=== PATIENT | male | born 1965 | race Caucasian/White ===

== ENCOUNTER 2017-05-31 10:02 | Emergency (ER) | payer BC ==
[~2017-05-31] VITALS: Ht 182.9 cm; Wt 92.7 kg
[2017-05-31 10:03] VITALS: Ht 182.9 cm; Wt 92.7 kg
[2017-05-31] MEDS ORDERED: SODIUM CHLORIDE 0.9% 1000ML 1,000 ML IV STA (10:21)
[2017-05-31] MEDS ORDERED: ACETAMINOPHEN 325 MG TAB PO STA (10:21)
[2017-05-31] MEDS ORDERED: IBUPROFEN 600 MG TAB PO STA (10:21)
--- NOTE | 2017-05-31 10:56 | DIAGNOSTIC IMAGING REPORT ---
CHEST ONE VIEW PORTABLE HISTORY: Sepsis COMPARISON: None. FINDINGS: The lungs are clear. Cardiac silhouette is normal in size. No pleural effusions. No pneumothorax. IMPRESSION: No acute process. Electronically signed by: Marcio Bender M.D. 05/31/2017 10:55 AM Dictated Date/Time: 05/31/2017 10:54 AM
[2017-05-31 11:29] LABS: INR 1.1 (0.9-1.1); PARTIAL THROMBOPLASTIN RATIO 1.1; PROTHROMBIN TIME (PATIENT) 11.6 SECONDS (9.0-12.0)
[2017-05-31 11:30] LABS: BUN/CREATININE RATIO 13.3 (10-20); CALCIUM 9.1 mg/dl (8.5-10.1); CREATININE 1.2 mg/dl (0.60-1.40); POTASSIUM 3.9 mmol/L (3.5-5.1)
[2017-05-31 11:33] LABS: ALB/GLOB RATIO 1.1 (0.9-2)
[2017-05-31 11:35] LABS: BASO % 0.2 %; BASO ABS # 0.01 K/uL (0-0.2); COMPLETE YES; HEMATOCRIT 45.3 % (42-52); IG% 0.2 %; LYMPH % 4.4 %; LYMPH ABS # 0.26 K/uL (1.2-3.4); MEAN CELL VOLUME 88.3 fL (80-100); MEAN CORPUSCULAR HEMOGLOBIN 31.8 pg (25-34); MEAN PLATELET VOLUME 10.1 fL (7.4-10.4); MONO % 7.4 %; NEUT % 87.8 %; PLATELET COUNT 142 K/uL (130-400); RED BLOOD COUNT 5.13 M/uL (4.7-6.1); WHITE BLOOD COUNT 5.95 K/uL (4.8-10.8)
[2017-05-31 12:13] LABS: LYME DISEASE AB IGG NEG (NEG); LYME DISEASE AB IGM NEG (NEG)
[2017-05-31 13:30] LABS: URINE APPEARANCE CLEAR (CLEAR); URINE COLOR DK YELLOW; URINE NITRITE NEG (NEG); URINE PH 5.5 (4.5-7.5); URINE SPECIFIC GRAVITY 1.027 (1.000-1.030); UROBILINOGEN POS (NEG); ZZUR CULT IF INDIC CLEAN CATCH NO
[2017-05-31 13:34] LABS: MANUAL MICROSCOPIC REQUIRED? NO; REVIEW REQ? NO; URINE BILIRUBIN NEG (NEG)
[2017-05-31] MEDS ORDERED: DOXYCYCLINE HYCLATE 100 MG CAP PO ONE (13:45)
[2017-05-31] MEDS ORDERED: DOXY100C2 PO (13:46)
[2017-05-31 14:08] VITALS: BP 135/82; PULSE 85; TEMP 36.8; O2SAT 96
--- NOTE | 2017-05-31 16:34 | EMERGENCY ROOM VISIT NOTE ---
History Report prepared by Reese: Mady Jeong Under the Supervision of: Dr. Hernan Maldonado M.D. First contact with patient: 10:10 Chief Complaint: ILLNESS Stated Complaint: ILLNESS History of Present Illness The patient is a 51 year old male who presents to the Emergency Room with complaints of an illness beginning 2 days ago. The patient reports that he has had nausea, chills, fevers, vomiting, and coughing when he vomits. He states that about twice a day he shakes uncontrollably for a half hour. He states that he also sweats profusely for 1-2 hours per day, twice a day. The patient also complains of a headache in the front of his head. He denies neck stiffness, a sore throat, abdominal pain, chest pain, shortness of breath, diarrhea, and urinary symptoms. The patient states that he had poison ranulfo on his feet and legs 6 days ago. He also reports that he had a tick bite 2 months ago, but did not have a rash with the bite. He reports that he has no other pertinent medical problems. The patient states that he did not take Tylenol or Motrin today for his symptoms. Source of History: patient Onset: 2 days ago Position: other (global) Quality: other (illness) Associated Symptoms: + fevers, + chills, + headache (front of his head ), + diaphoresis (1-2 hours per day, twice a day ), + cough (when he vomits ), + nausea, + vomiting, No sorethroat, No neck pain, No chest pain, No SOB, No abdominal pain, No diarrhea, No urinary symptoms Review of Systems See HPI for pertinent positives & negatives. A total of 10 systems reviewed and were otherwise negative. Past Medical & Surgical Medical Problems: (1) Tick bite Family History No pertinent family history stated. Social History Smoking Status: Never Smoker Marital Status: Current/Historical Medications Scheduled Doxycycline Hyclate (Vibramycin), 100 MG PO BID Allergies Coded Allergies: No Known Allergies (Unverified , 05/31/17) Physical Exam Vital Signs Date Time Temp Pulse Resp B/P (MAP) Pulse Ox O2 Delivery O2 Flow Rate FiO2 05/31/17 14:08 36.8 85 16 135/82 96 Room Air 05/31/17 12:44 95 16 123/69 05/31/17 11:20 90 16 136/83 05/31/17 10:03 37.9 122 17 140/88 96 Room Air Physical Exam Constitutional: Vital signs reviewed. Eyes: Pupils are equal round reactive to light. Conjunctiva are noninjected. ENT: Pharynx is clear without erythema or exudate. Mucous membranes are moist. Neck supple without meningeal signs. Respiratory: Clear to auscultation bilaterally. Breath sounds are equal bilaterally. Cardiovascular: Regular rate and rhythm. No rubs or gallops. GI: Soft, nondistended and nontender. Bowel sounds are present. Musculoskeletal: No peripheral edema. No lower extremity tenderness. Integumentary: No cyanosis. Appear to be bug bites to his lower legs and feet with some scattered bites to his thighs. No vesicles, petechiae, or purpura. No lesions on the palms or soles. Neurological: The patient is awake and alert. Cranial nerves II-XII are intact. Motor is 5 out of 5 all extremities. Sensation is intact to light touch all extremities. Normal speech. No pronator drift. No limb ataxia. Negative Kernig and Brudzinski's sign. Psychiatric: Normal affect. Medical Decision & Procedures ER Provider Diagnostic Interpretation: X-ray results as stated below per interpretation by me and the radiologist: CHEST ONE VIEW PORTABLE HISTORY: Sepsis COMPARISON: None. FINDINGS: The lungs are clear. Cardiac silhouette is normal in size. No pleural effusions. No pneumothorax. IMPRESSION: No acute process. Electronically signed by: Marcio Bender M.D. 05/31/2017 10:55 AM Dictated Date/Time: 05/31/2017 10:54 AM Laboratory Results 05/31/17 10:50 Red Blood Count 5.13, Mean Corpuscular Volume 88.3, Mean Corpuscular Hemoglobin 31.8, Mean Corpuscular Hemoglobin Concent 36.0, Mean Platelet Volume 10.1, Neutrophils (%) (Auto) 87.8, Lymphocytes (%) (Auto) 4.4, Monocytes (%) (Auto) 7.4, Eosinophils (%) (Auto) 0.0, Basophils (%) (Auto) 0.2, Neutrophils # (Auto) 5.23, Lymphocytes # (Auto) 0.26, Monocytes # (Auto) 0.44, Eosinophils # (Auto) 0.00, Basophils # (Auto) 0.01 05/31/17 10:50 Test 05/31/17 10:50 05/31/17 10:53 05/31/17 11:03 05/31/17 13:10 White Blood Count 5.95 K/uL (4.8-10.8) Red Blood Count 5.13 M/uL (4.7-6.1) Hemoglobin 16.3 g/dL (14.0-18.0) Hematocrit 45.3 % (42-52) Mean Corpuscular Volume 88.3 fL (80-100) Mean Corpuscular Hemoglobin 31.8 pg (25-34) Mean Corpuscular Hemoglobin Concent 36.0 g/dl (32-36) Platelet Count 142 K/uL (130-400) Mean Platelet Volume 10.1 fL (7.4-10.4) Neutrophils (%) (Auto) 87.8 % Lymphocytes (%) (Auto) 4.4 % Monocytes (%) (Auto) 7.4 % Eosinophils (%) (Auto) 0.0 % Basophils (%) (Auto) 0.2 % Neutrophils # (Auto) 5.23 K/uL (1.4-6.5) Lymphocytes # (Auto) 0.26 K/uL (1.2-3.4) Monocytes # (Auto) 0.44 K/uL (0.11-0.59) Eosinophils # (Auto) 0.00 K/uL (0-0.5) Basophils # (Auto) 0.01 K/uL (0-0.2) RDW Standard Deviation 41.1 fL (36.4-46.3) RDW Coefficient of Variation 12.7 % (11.5-14.5) Immature Granulocyte % (Auto) 0.2 % Immature Granulocyte # (Auto) 0.01 K/uL (0.00-0.02) Prothrombin Time 11.6 SECONDS (9.0-12.0) Prothromb Time International Ratio 1.1 (0.9-1.1) Activated Partial Thromboplast Time 27.9 SECONDS (21.0-31.0) Partial Thromboplastin Ratio 1.1 Anion Gap 8.0 mmol/L (3-11) Est Creatinine Clear Calc Drug Dose 78.2 ml/min Estimated GFR () 79.5 Estimated GFR (Non- 68.6 BUN/Creatinine Ratio 13.3 (10-20) Calcium Level 9.1 mg/dl (8.5-10.1) Total Bilirubin 3.2 mg/dl (0.2-1) Aspartate Amino Transf (AST/SGOT) 48 U/L (15-37) Alanine Aminotransferase (ALT/SGPT) 79 U/L (12-78) Alkaline Phosphatase 87 U/L (45-117) Total Protein 7.2 gm/dl (6.4-8.2) Albumin 3.8 gm/dl (3.4-5.0) Globulin 3.4 gm/dl (2.5-4.0) Albumin/Globulin Ratio 1.1 (0.9-2) Lyme Disease IgG Antibody NEG (NEG) Lyme Disease IgM Antibody NEG (NEG) Monoscreen NEG (NEG) Influenza Type A Antigen Neg for Influ A (NEG) Influenza Type B Antigen Neg for Influ B (NEG) Bedside Lactic Acid Venous 1.36 mmol/L (0.90-1.70) Urine Color DK YELLOW Urine Appearance CLEAR (CLEAR) Urine pH 5.5 (4.5-7.5) Urine Specific [place] 1.027 (1.000-1.030) Urine Protein 1+ (NEG) Urine Glucose (UA) NEG (NEG) Urine Ketones 1+ (NEG) Urine Occult Blood NEG (NEG) Urine Nitrite NEG (NEG) Urine Bilirubin NEG (NEG) Urine Urobilinogen POS (NEG) Urine Leukocyte Esterase NEG (NEG) Urine WBC (Auto) 1-5 /hpf (0-5) Urine RBC (Auto) 0-4 /hpf (0-4) Urine Hyaline Casts (Auto) 1-5 /lpf (0-5) Urine Epithelial Cells (Auto) 10-20 /lpf (0-5) Urine Bacteria (Auto) NEG (NEG) Laboratory results as reviewed by me. Medications Administered Medications (Trade) Dose Ordered Sig/Reji Route Start Time Stop Time Status Last Admin Dose Admin Sodium Chloride 1,000 ml @ 999 mls/hr Q1H1M STAT IV 05/31/17 10:21 05/31/17 11:21 DC 05/31/17 11:00 999 MLS/HR Acetaminophen (Tylenol Tab) 650 mg NOW STAT PO 05/31/17 10:21 6/30/17 10:24 DC 05/31/17 11:00 650 MG Ibuprofen (Motrin Tab) 600 mg NOW STAT PO 05/31/17 10:21 05/31/17 10:24 DC 05/31/17 11:01 600 MG Doxycycline Hyclate (Vibramycin Cap) 100 mg ONE ONCE PO 05/31/17 13:45 05/31/17 13:46 DC 05/31/17 14:05 100 MG ED Course 1014: The patient was evaluated in room A4. A complete history and physical exam was performed. 1021: Ordered Ibuprofen 600 mg PO, Tylenol Tab 650 mg PO, Sodium Chloride 1,000 ml @ 999 mls/hr IV. 1141: I discussed test results with the patient. 1230: I talked about test results and he says that he is feeling better and his headache is almost completely resolved. We discussed the possibility of lumbar puncture, but we agreed that it was not indicated currently. The patient will give a urine sample. 1345: Ordered Doxycycline Hyclate 100 mg PO. 1347: The patient agrees to undergo treatment for Lyme Disease given his symptoms and LFT's. He will follow up with a primary doctor next week. Medical Decision This is a 51-year-old male who presents with fever and malaise. Differential diagnosis includes Lyme disease, viral infection, pneumonia, UTI, influenza, meningitis, RMSF. I did perform a limited focused review of portions of the patient's old chart on the electronic medical record. The patient has had no recent pertinent visits to this hospital. Blood Pressure Screening: Patient was found to have an elevated blood pressure and was referred to their primary doctor for recheck and further treatment. Medication Reconciliation: I attest that I have personally reviewed the patient' s current medication list. I did evaluate the patient as noted above. The patient is presenting with fever , chills and malaise. He states he has some elbow pain as well and recently had tick bites. The symptoms seem most consistent with Lyme disease. He does complain of a headache but it is frontal without any neck stiffness or pain. He has no meningeal signs on examination. He does have a rash to his lower extremities which appears to be consistent with bug bites. He initially thought it was poison ranulfo or oak but I do not see any vesicles or a pattern consistent with poison ranulfo. He does not have any lesions on the palms or soles to suggest Blanco spotted fever. IV access was established. I did treat the patient with normal saline IV. He was also given Tylenol and Motrin. I did order and personally review the patient's urinalysis and chest x-ray as described above. I did order and review the patient's blood work as noted in the electronic medical record. His white blood cell count is not elevated. Lyme and Monospot are negative. Rapid flu test is negative. He does have some elevation of his LFTs.I did reassess the patient. I did discuss the test results with him. He states he is feeling better at this time and states that this headache is very mild. Again I explained to him why I did not feel he had meningitis and did not feel he needed a lumbar puncture at this time. He agreed. His symptoms seem most consistent with Lyme disease despite the negative lab tests. We often see false negative Lyme test early in the course of the disease. He has had recent tick bites, he complains of headache, fever and body aches with joint pain. I did recommend we treat him for Lyme. He was given doxycycline here and discharged home with a 21 day course of doxycycline. He was advised to follow closely with a primary care physician next week. He will need his LFTs rechecked. Impression Primary Impression: Acute febrile illness Additional Impressions: Abnormal LFTs Acute headache Scribe Attestation The scribe's documentation has been prepared under my direct and personally reviewed by me in its entirety. I confirm that the note above accurately reflects all work, treatment, procedures, and medical decision making performed by me. Departure Information Dispostion Home / Self-Care Prescriptions Doxycycline Hyclate (VIBRAMYCIN) 100 Mg Cap 100 MG PO BID for 21 Days, #42 CAP Prov: Hernan Maldonado M.D. 05/31/17 Referrals No Doctor, Assigned (PCP) Forms HOME CARE DOCUMENTATION FORM, IMPORTANT VISIT INFORMATION, WORK / SCHOOL INSTRUCTIONS Patient Instructions My [facility] Additional Instructions You have been examined and treated today on an emergency basis only. This is not a substitute for, or an effort to provide, complete comprehensive medical care. It is impossible to recognize and treat all injuries or illnesses in a single emergency department visit. It is therefore important that you follow up closely with a regular physician. Call as soon as possible for an appointment. Have them recheck your liver tests which were elevated today. Return for worsening symptoms or if you develop neck stiffness, rash, vomiting, abdominal pain or any other concerning symptoms. You are being treated empirically for possible Lyme disease despite a negative blood test because of your clinical symptoms. Problem Qualifiers Additional Impressions: Acute headache Headache type: unspecified Intractability: not intractable Qualified Codes : R51 - Headache
== END 2017-05-31 14:22 | disposition home or self-care (01) ==
LOC: C.EDB 10:04 → C.EDA 14:22
DX: R69 Illness, unspecified (principal); R51 Headache

== ENCOUNTER → 2017-06-05 | Outpatient (CLI) | payer BC ==
[~2017-06-05] MED LIST: DOXY100C2 PO
[2017-06-05 18:20] LABS: URINE APPEARANCE TURBID (CLEAR); URINE BILIRUBIN NEG (NEG); URINE COLOR DK YELLOW; URINE EPITHELIAL CELL AUTO 0-5 /lpf (0-5); URINE NITRITE NEG (NEG); URINE SPECIFIC GRAVITY 1.029 (1.000-1.030); UROBILINOGEN NEG (NEG); ZZUR CULT IF INDIC CLEAN CATCH NO
[2017-06-05 18:21] LABS: MANUAL MICROSCOPIC REQUIRED? NO; REVIEW REQ? YES
[2017-06-05 18:45] LABS: LYME DISEASE AB IGG NEG (NEG)
[2017-06-05 19:17] LABS: LYME DISEASE AB IGM POS (NEG)
[2017-06-11 19:00] LABS: 18KDIGG BAND NONREACTIVE (NONREACTIVE); 23KDIGG BAND REACTIVE (NONREACTIVE); 23KDIGM BAND REACTIVE (NONREACTIVE); 28KDIGG BAND NONREACTIVE (NONREACTIVE); 30KDIGG BAND REACTIVE (NONREACTIVE); 39KDIGG BAND NONREACTIVE (NONREACTIVE); 39KDIGM BAND NONREACTIVE (NONREACTIVE); 41KDIGG BAND REACTIVE (NONREACTIVE); 41KDIGM BAND REACTIVE (NONREACTIVE); 45KDIGG BAND REACTIVE (NONREACTIVE); 58KDIGG BAND NONREACTIVE (NONREACTIVE); 66KDIGG BAND NONREACTIVE (NONREACTIVE); 93KDIGG BAND NONREACTIVE (NONREACTIVE)
[2017-06-12 18:40] LABS: EHRLICHIA CHAFF IGG AB <1:64 (<1:64); EHRLICHIA CHAFF IGM AB <1:20 (<1:20)
== END | disposition home or self-care (01) ==
LOC: C.LABMFLN 12:08
PROVIDERS: ATTEND Family Medicine
DX: R50.9 Fever, unspecified (principal); R11.0 Nausea

== ENCOUNTER → 2018-02-05 | Outpatient (CLI) | payer BC ==
[2018-02-05 17:39] LABS: BASO % 0.9 %; BASO ABS # 0.06 K/uL (0-0.2); EOS % 0.9 %; EOS ABS # 0.06 K/uL (0-0.5); HEMATOCRIT 47.6 % (42-52); HEMOGLOBIN 16.9 g/dL (14.0-18.0); IG# 0.01 K/uL (0.00-0.02); LYMPH ABS # 1.16 K/uL (1.2-3.4); MEAN CELL VOLUME 89.3 fL (80-100); MEAN CORPUSCULAR HEMOGLOBIN 31.7 pg (25-34); MEAN CORPUSCULAR HGB CONC 35.5 g/dl (32-36); MEAN PLATELET VOLUME 10.5 fL (7.4-10.4); MONO % 5.7 %; MONO ABS # 0.39 K/uL (0.11-0.59); NEUT % 75.4 %; NEUT ABS # 5.16 K/uL (1.4-6.5); PLATELET COUNT 235 K/uL (130-400); RED CELL DISTRIBUTION WIDTH CV 12.7 % (11.5-14.5); RED CELL DISTRIBUTION WIDTH SD 41.1 fL (36.4-46.3); WHITE BLOOD COUNT 6.84 K/uL (4.8-10.8)
[2018-02-05 17:59] LABS: ALBUMIN 4.2 gm/dl (3.4-5.0); ALKALINE PHOSPHATASE 85 U/L (45-117); ALT/SGPT 40 U/L (12-78); AST/SGOT 18 U/L (15-37); BLOOD UREA NITROGEN 17 mg/dl (7-18); CARBON DIOXIDE 28 mmol/L (21-32); CREATININE 1.13 mg/dl (0.60-1.40); GLUCOSE 102 mg/dl (70-99); POTASSIUM 4.3 mmol/L (3.5-5.1); SODIUM 138 mmol/L (136-145); TOTAL PROTEIN 7.4 gm/dl (6.4-8.2)
[2018-02-05 18:24] LABS: INFLUENZA A PCR Neg for Influ A (NEG); INFLUENZA B PCR Neg for Influ B (NEG)
== END | disposition home or self-care (01) ==
LOC: C.LABMFLN 11:01
PROVIDERS: ATTEND Family Medicine
DX: R11.0 Nausea (principal); M54.5 Low back pain; M79.1 Myalgia

== ENCOUNTER 2018-07-27 03:58 | Emergency (ER) | payer BC ==
[~2018-07-27] VITALS: Ht 182.9 cm; Wt 98.1 kg
[2018-07-27 04:00] VITALS: TEMP 36.7; Ht 182.9 cm; Wt 98.1 kg
[2018-07-27] MEDS ORDERED: PROPARACAINE HCL 0.5% OP SOLN 15 ML BTL ONE (04:06)
--- NOTE | 2018-07-27 04:29 | EMERGENCY ROOM VISIT NOTE ---
History First contact with patient: 04:04 Chief Complaint: EYE ASSESSMENT Stated Complaint: SOMETHING IN EY History of Present Illness The patient is a 52 year old male who presents to the Emergency Room with complaints of right eye irritation. The patient believes there may be something stuck in his eye. He states his symptoms started hurting last night around 9 PM. 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 He does wear contacts but removed the right contact after the symptoms began. Rates the discomfort a 5/10. He denies any problems with his vision. Review of Systems A complete 6 point review of systems was reviewed with the patient with pertinent positives and negatives as per history of present illness. All else were negative. Past Medical/Surgical History Medical Problems: (1) Tick bite Social History Smoking Status: Never Smoker Marital Status: Current/Historical Medications Scheduled Doxycycline Hyclate (Vibramycin), 100 MG PO BID Physical Exam Vital Signs Date Time Temp Pulse Resp B/P (MAP) Pulse Ox O2 Delivery O2 Flow Rate FiO2 07/27/18 05:01 78 122/79 98 Room Air 07/27/18 04:00 36.7 79 18 126/81 98 Room Air Right Eye Acuity: 20/100 no correction Left Eye Acuity: 20/50 with contact in Physical Exam VITALS: Vitals are noted on the nurse's note and reviewed by myself. Vital signs stable. GENERAL: This is a 52-year-old male, in no acute distress, nondiaphoretic, well- developed well-nourished. SKIN: The skin was without rashes. HEAD: Normocephalic atraumatic. EYES: Pupils equal round and reactive to light and accommodation. There is significant conjunctival injection of the right eye. No foreign body seen in the eye under slit lamp examination. No foreign body after eyelid eversion. There is a small circular area of fluorescein uptake over the iris at approximately 10:00. NEURO: Patient was alert and oriented to person place and time. Medical Decision & Procedures Medications Administered Medications (Trade) Dose Ordered Sig/Reji Route Start Time Stop Time Status Last Admin Dose Admin Proparacaine HCl (Alcaine 0.5% Oph Soln) 225 drops STK-MED ONCE .ROUTE 07/27/18 04:06 8/26/18 04:07 DC 07/27/18 04:06 225 DROPS Ofloxacin (Ocuflox 0.3% Oph Soln) 2 drops NOW STAT OP 07/27/18 04:47 07/27/18 04:48 DC 07/27/18 04:47 2 DROPS Medical Decision Differential diagnosis includes corneal abrasion, corneal ulcer, corneal foreign body, among others. The patient was evaluated as above. He presents with right eye irritation which was relieved by Alcaine. Slit-lamp examination does show some fluorescein uptake over a small area of the iris. This does not appear to represent a corneal ulcer at this time. I believe it is likely a corneal abrasion from his contact lenses or possibly due to a small foreign body which has been removed. The patient will be placed on ofloxacin drops. 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 He verbalized understanding of my assessment and treatment plan and was discharged home in good condition. Medication Reconcilliation Current Medication List: was personally reviewed by me Blood Pressure Screening Patient's blood pressure: Normal blood pressure Impression Primary Impression: Cornea abrasion Departure Information Dispostion Home / Self-Care Condition GOOD Referrals Massimo Sepulveda M.D. (PCP) Anatoly Restrepo MD Patient Instructions My [facility] Additional Instructions You have been treated in the Emergency Department today for your Corneal Abrasion. You have been prescribed Ciloxan eye drops. This is an antibiotic which will help to prevent an infection from developing in your affected eye. You should use 2 drops in the affected eye every 2 hours while awake for the first 2 days, then every 4 hours for the remaining 5 days. This is a total of a 7-day course for these antibiotic eye drops. For pain control, you can use the following [id number] medicines (if >12 yo): - Regular strength (325mg/tab) Tylenol (acetaminophen) 2 tabs every 4-6 hours as needed. Do not exceed 12 tablets in a 24 hour period. Avoid taking more than 4 grams (4000 mg) of Tylenol per day. This includes any other sources of acetaminophen you may take on a regular basis. - Regular strength (200 mg/tab) Advil (ibuprofen) 1-2 tabs every 4-6 hours as needed. Do not exceed a dose of 3200 mg per day. You should relax in a quiet, dark place for the rest of the day. You should wear sunglasses while outside for the next few days until your eyes are not as sensitive to the light. Contact your mail processing equipment mechanic Saturday morning to schedule a follow-up appointment. You have also been provided with information for a local linoleum layer. Return to the Emergency Department if your current symptoms worsen despite treatment course outlined above, or if you develop any of the following symptoms : intractable pain, visual disturbances, loss of vision, increased redness, swelling, drainage, or if you develop a fever. Problem Qualifiers Primary Impression: Cornea abrasion Encounter type: initial encounter Laterality: right Qualified Codes: S05.01XA - Injury of conjunctiva and corneal abrasion without foreign body, right eye, initial encounter
[2018-07-27] MEDS ORDERED: CIPROFLOXACIN HCL 0.3% OP SOLN 2.5 ML BTL OP ONE (04:30)
[2018-07-27] MEDS ORDERED: OFLOXACIN 0.3% OP SOLN 5 ML BTL OP STA (04:47)
[2018-07-27 05:01] VITALS: BP 122/79; PULSE 78; O2SAT 98
== END 2018-07-27 04:55 | disposition home or self-care (01) ==
LOC: C.EDB 04:00 → C.EDA 04:55
DX: S05.01XA Injury of conjunctiva and corneal abrasion without foreign body, right eye, initial encounter (principal); X58.XXXA Exposure to other specified factors, initial encounter